=== PATIENT | male | born 1935 | race Caucasian/White ===

== ENCOUNTER 2020-01-05 21:16 | Emergency (ER) | payer MEDICARE ==
[~2020-01-05 21:16] MED LIST: ATENOLOL50 MG PO; AVELOX400 MG PO; BAYER LOW DOSE81 MG PO; BAYER LOW81 MG OR; ELIQUIS5 MG PO; FISH OIL1000 MG OR; FLEXERIL OR; FLOMAX0.4 M1 PO; GABAPENTIN300 MG PO; LIPITOR80 MG OR; LIPITOR80 MG PO; LISINOPRIL40 MG PO; LORTAB 5 PO; LOSARTAN POT50 MG PO; MULTIVITAMIN PO; MYCELEX15 GM/TUBE TOP; NAPROSYN500 MG OR; SIMVASTATIN40 MG PO; TENORMIN OR; UNKNOWN BP MEDS; ZITHROMAX250 MG PO; ZOFRAN ODT8 MG SL
[2020-01-05] MEDS ORDERED: GABAPENTIN100 MG PO ×2 (21:42→21:43)
[2020-01-05] MEDS ORDERED: TAMSULOSIN HCL0.4 MG PO (21:44)
[2020-01-05] MEDS ORDERED: PRESERVISION ARED1 (21:45)
[2020-01-05] MEDS ORDERED: STOOL SOFTENER100 MG PO (21:46)
[2020-01-05] MEDS ORDERED: ATORVASTATIN CA40 MG PO (21:50)
[2020-01-05 22:18] LABS: HEMATOCRIT 43.6 % (39.0-50.0); HEMOGLOBIN 14.8 g/dl (14.0-18.0); IMMATURE GRANULOCYTES 0.2 % (0.0-5.0); MEAN CORPUSCULAR HGB 32.6 pG CALC (26.0-32.0); MEAN CORPUSCULAR HGB CONC 33.9 g/dL CAL (32.0-36.0); NEUT# 6.8 thou/uL (1.82-7.42); RED BLOOD COUNT 4.54 mill/uL (4.70-6.10); RED CELL DISTRI WIDTH 11.8 % (11.5-15.5)
[2020-01-05 22:27] LABS: URINE BILIRUBIN - DIPSTICK NEGATIVE (NEGATIVE); URINE BLOOD DIPSTICK NEGATIVE (NEGATIVE); URINE COLOR YELLOW; URINE GLUCOSE - DIPSTICK NEGATIVE (NEGATIVE); URINE KETONE NEGATIVE (NEGATIVE); URINE LEUK ESTERASE NEGATIVE (NEGATIVE); URINE NITRITE - DIPSTICK NEGATIVE (Negative); URINE PROTEIN - DIPSTICK NEGATIVE (NEG-TRACE)
[2020-01-05 22:36] LABS: ALBUMIN 4.6 g/dL (3.2-5.0); ALKALINE PHOSPHATASE 85 u/l (38-126); ANION GAP 12 (6-22 (CALC)); BILIRUBIN, TOTAL 1.1 mg/dL (0.0-1.4); BUN 14 mg/dL (8-23); BUN/CREATININE RATIO 16 (12-20 (CALC)); CARBON DIOXIDE 26 mmol/l (22-30); CHLORIDE 101 mmol/l (95-108); CREATININE 0.9 mg/dL (0.7-1.3); GFR > 60 ML/MIN (>=60 (CALC)); GFR FOR AFR.AMER. > 60 ML/MIN (>=60 (CALC)); POTASSIUM 4.2 mmol/l (3.5-5.1); SGOT/AST 27 u/l (19-48); SODIUM 136 mmol/l (137-146); TOTAL PROTEIN 7.9 g/dL (6.3-8.2)
[2020-01-06] VITALS: BP 167/77
== END 2020-01-06 00:07 | disposition home or self-care (01) ==
LOC: ED 21:16
PROVIDERS: Emergency Medicine
DX: J06.9 Acute upper respiratory infection, unspecified (principal); I10 Essential (primary) hypertension; E11.40 Type 2 diabetes mellitus with diabetic neuropathy, unspecified; Z20.828 Contact with and (suspected) exposure to other viral communicable diseases

== ENCOUNTER 2022-02-05 06:14 | Emergency (ER) | payer MEDICARE ==
[~2022-02-05] VITALS: Ht 182.9 cm; Wt 81.8 kg
[~2022-02-05 06:14] MED LIST changes: +ATORVASTATIN CA40 MG PO; +GABAPENTIN100 MG PO; +PRESERVISION ARED1; +STOOL SOFTENER100 MG PO; +TAMSULOSIN HCL0.4 MG PO
[2022-02-05 06:56] LABS: URINE BILIRUBIN - DIPSTICK NEGATIVE (NEGATIVE); URINE BLOOD DIPSTICK TRACE-INTACT (NEGATIVE); URINE COLOR YELLOW; URINE GLUCOSE - DIPSTICK NEGATIVE (NEGATIVE); URINE KETONE TRACE mg/dL (NEGATIVE); URINE LEUK ESTERASE NEGATIVE (NEGATIVE); URINE PROTEIN - DIPSTICK 30 mg/dL (NEG-TRACE); URINE SPECIFIC GRAVITY >=1.030; URINE UROBILINOGEN - DIPSTICK 0.2 E.U./dL (0.2)
[2022-02-05 06:58] LABS: URINE NITRITE - DIPSTICK NEGATIVE (Negative)
[2022-02-05 07:05] LABS: URINE SQUAMOUS EPITHELIAL CELL FEW EPI/hpf (0-FEW)
[2022-02-05 07:06] LABS: URINE BACTERIA FEW hpf; URINE MUCUS MANY hpf (NONE-FEW)
[2022-02-05 07:07] LABS: ALBUMIN 4.1 g/dL (3.2-5.0); ALKALINE PHOSPHATASE 85 u/l (38-126); ANION GAP 10 (6-22 (CALC)); BILIRUBIN, TOTAL 0.7 mg/dL (0.0-1.4); BUN 17 mg/dL (8-23); BUN/CREATININE RATIO 18 (12-20 (CALC)); CARBON DIOXIDE 28 mmol/l (22-30); CHLORIDE 102 mmol/l (95-108); CREATININE 0.9 mg/dL (0.7-1.3); GFR FOR AFR.AMER. > 60 ML/MIN (>=60 (CALC)); GFR OTHER RACES > 60 ML/MIN (>=60 (CALC)); HEMATOCRIT 43.7 % (39.0-50.0); HEMOGLOBIN 14.6 g/dl (14.0-18.0); IMMATURE GRANULOCYTES 0.5 % (0.0-5.0); MEAN CORPUSCULAR HGB 32.7 pG CALC (26.0-32.0); MEAN CORPUSCULAR HGB CONC 33.4 g/dL CAL (32.0-36.0); NEUT# 4.06 thou/uL (1.82-7.42); POTASSIUM 4.1 mmol/l (3.5-5.1); RED BLOOD COUNT 4.46 mill/uL (4.70-6.10); RED CELL DISTRI WIDTH 11.9 % (11.5-15.5); SGOT/AST 31 u/l (19-48); SODIUM 136 mmol/l (137-146); TOTAL PROTEIN 7.2 g/dL (6.3-8.2)
[2022-02-05] MEDS ORDERED: CHERATUSSIN PO (07:37)
[2022-02-05 07:40] VITALS: BP 153/74
== END 2022-02-05 08:05 | disposition home or self-care (01) ==
LOC: ED 06:14
PROVIDERS: Family Medicine
DX: U07.1 COVID-19 (principal); R09.81 Nasal congestion; R05.9 Cough, unspecified; M79.10 Myalgia, unspecified site; I10 Essential (primary) hypertension; E11.40 Type 2 diabetes mellitus with diabetic neuropathy, unspecified

== ENCOUNTER 2024-05-03 06:55 | Day surgery (SDC) | payer MEDICARE ==
[~2024-05-03] VITALS: Ht 182.9 cm; Wt 81.2 kg
[~2024-05-03 06:55] MED LIST changes: +CHERATUSSIN PO; +IRON INFUSION IV
[2024-05-03] MEDS ORDERED: LACTATED RINGER'S 1,000 ML IV ONE (06:58)
[2024-05-03] MEDS ORDERED: FAMOTIDINE 10MG/ML 2ML SDV IV ONE (06:58)
[2024-05-03 09:22] VITALS: BP 166/90
[2024-05-03] MEDS ORDERED: PROPOFOL 200 MG/20 ML VIAL IV ONE (15:12)
[2024-05-03] MEDS ORDERED: LIDOCAINE HCL 2% 2ML SDV IV ONE (15:12)
== END 2024-05-03 09:25 | disposition home or self-care (01) ==
LOC: ORM 06:55
PROVIDERS: ATTEND Internal Medicine Gastroenterology
PROC: 0DB98ZX Excision of Duodenum, Via Natural or Artificial Opening Endoscopic, Diagnostic (ICD-10-PCS; principal; 2024-05-03)
PROC: 0DB78ZX Excision of Stomach, Pylorus, Via Natural or Artificial Opening Endoscopic, Diagnostic (ICD-10-PCS; 2024-05-03)
PROC: 0DB58ZX Excision of Esophagus, Via Natural or Artificial Opening Endoscopic, Diagnostic (ICD-10-PCS; 2024-05-03)
DX: K29.71 Gastritis, unspecified, with bleeding (principal); K29.81 Duodenitis with bleeding; B37.81 Candidal esophagitis; K31.89 Other diseases of stomach and duodenum; I10 Essential (primary) hypertension; J44.9 Chronic obstructive pulmonary disease, unspecified; G62.9 Polyneuropathy, unspecified; E78.5 Hyperlipidemia, unspecified; N40.0 Benign prostatic hyperplasia without lower urinary tract symptoms; G47.30 Sleep apnea, unspecified; Z95.5 Presence of coronary angioplasty implant and graft; Z79.899 Other long term (current) drug therapy